=== PATIENT | male | born 1960 | race Caucasian/White ===

== ENCOUNTER 2017-02-07 14:11 | Inpatient (IN) | payer OTHER ==
[~2017-02-07] VITALS: Ht 175.3 cm; Wt 70.3 kg
[~2017-02-07 14:11] MED LIST: ALPR1TAB2 PO; ARIP5TAB10 PO; ASPI81TA31 PO; ATEN25TA PO; BENA20TA2 PO; GABA-534 PO; INSU100V11 SQ; INSU100V7 SQ; METF10002 PO; SIMV20TA6 PO
[2017-02-07] MEDS ORDERED: ACETAMINOPHEN ES 500 MG TABLET PO ONE (14:30)
[2017-02-07] MEDS ORDERED: IV NORMAL SALINE 1000 ML BAG IV ONE (14:30)
[2017-02-07] MEDS ORDERED: ACETAMINOPHEN ES 500 MG TABLET ONE (14:44)
[2017-02-07 14:47] LABS: BASOPHILS % (AUTO) 0.8 % (0.0-2.0); EOSINOPHILS # (AUTO) 0.1 K/uL (0.0-0.7); EOSINOPHILS % (AUTO) 3.3 % (0.0-7.0); HEMATOCRIT 35.6 % (40-50); HEMOGLOBIN 11.9 G/DL (14.0-18.0); LYMPHOCYTES % (AUTO) 24.1 % (20.5-51.5); MEAN CORPUSCULAR HEMOGLOBIN 31.6 UUG (27.0-31.0); MEAN CORPUSCULAR HGB CONC 33 g/dL (32.0-37.0); MEAN CORPUSCULAR VOLUME 94.6 FL (82.0-92.0); MONOCYTES # (AUTO) 0.5 K/UL (0.1-1.30); MONOCYTES % (AUTO) 10.6 % (0.0-11.0); NEUTROPHILS # (AUTO) 2.7 K/UL (1.8-8.9); NEUTROPHILS % (AUTO) 61.2 % (38.5-71.5); PLATELET COUNT (AUTO) 143 K/UL (150-450); RED BLOOD CELL COUNT(AUTO) 3.77 MIL/UL (4.7-6.1); WHITE BLOOD COUNT (AUTO) 4.3 K/UL (4.0-11.2)
[2017-02-07 15:09] LABS: BILIRUBIN,DIRECT 0.2 mg/dL (0.0-0.2); BILIRUBIN,TOTAL 0.7 mg/dL (0.2-1.0); CREATININE 2.4 mg/dL (0.6-1.3); POTASSIUM 3.4 mmol/L (3.5-5.1); TOTAL PROTEIN, SERUM 8.2 g/dL (6.4-8.2)
--- NOTE | 2017-02-07 15:27 | NUR ---
Call placed to [facility], Dr. bOrien will be paged.
--- NOTE | 2017-02-07 15:45 | NUR ---
Fluid bolus not required for elevated lactic acid, per ERMD.
--- NOTE | 2017-02-07 16:39 | NUR ---
SBAR report given to Lorenza DAS via telephone.
[2017-02-07 17:05] VITALS: BP 126/85
--- NOTE | 2017-02-07 18:12 | NUR ---
1814. PATIENT ADMITTED TO 219 VIA ERNEY FROM E.R. AFTER SYNCOPAL EPISODE TODAY. PATIENT AWAKE ALERT AND ORIENTED. NO FURTHER EPISODES SINCE ADMISSION TO FLOOR. PATIENT STATES HE IS A DIABETIC. SPOT ACCUCHECK DONE =117. PATIENT STATES THAT HE HAS FREQUENT EPISODES OF FAINTING FOR THE PAST FEW MONTHS WITH MOMENTARY LOSS OF CONSCIOUSNESS. SMALL LACERATION ON BACK OF HEAD AND SPINE WITH C.T. DONE IN E.R. NO SUTURING WAS NECESSARY TO LACERATION. DR. LOO CALLED FOR PATIENT'S COMPLAINT OF BACK PAIN AND DIET ORDER. MONITOR SHOWS SINUS RHYTHM WITH PVC'S.
[2017-02-07] MEDS ORDERED: DEXTROSE 50% 50 ML DISP.SYRIN IV PRN (18:15)
[2017-02-07] MEDS ORDERED: ZOLPIDEM 5 MG TABLET PO PRN (18:15)
[2017-02-07] MEDS ORDERED: ACETAMINOPHEN 325 MG TABLET PO PRN (18:15)
[2017-02-07] MEDS ORDERED: MORPHINE SULFATE 2 MG/1 ML DISP.SYRIN ONE (19:03)
[2017-02-07] MEDS ORDERED: DIATR MEGLU/DIATRIZOATE SODIUM 30 ML SOLUTION ONE (19:10)
[2017-02-07] MEDS: MORPHINE SULFATE 2 MG/1 ML DISP.SYRIN IV PRN ×2 (19:13→23:14)
--- NOTE | 2017-02-07 19:15 | NUR ---
1911. PATIENT GIVEN 2MGMS MORPHINE SULPHATE IVP FOR COMPLAINTS OF PAIN 12/22, WITH GOOD EFFECT. AMA ALVARENGA R.N. 07-7P. 02/07/2017. 2ND FLOOR M/S/TELE. [facility].
[2017-02-07 20:00] VITALS: BP 103/71
[2017-02-07] MEDS: POTASSIUM CHLORIDE 20 MEQ in IV NS 1000 ML 1,000 ML IV PRN (20:45)
[2017-02-07] MEDS: SIMVASTATIN 20 MG TABLET PO SCH (20:59)
[2017-02-07] MEDS: INSULIN DETEMIR 300 UNIT/3 ML CARTRIDGE SQ SCH (21:06)
[2017-02-07] MEDS: BLOOD SUGAR DIAGNOSTIC 1 EACH STRIP VI SCH (21:07)
--- NOTE | 2017-02-07 21:14 | NUR ---
To CT chest/abdomen via wheelchair.
--- NOTE | 2017-02-07 21:30 | NUR ---
Back from CT. No problem presented. snack provided.
[2017-02-07] MEDS: INSULIN REGULAR, HUMAN 300 UNITS/3 ML VIAL SQ PRN (21:37)
[2017-02-08 00:21] VITALS: BP 136/87
[2017-02-08] MEDS: MORPHINE SULFATE 2 MG/1 ML DISP.SYRIN IV PRN ×3 (03:06→11:14)
[2017-02-08 04:00] VITALS: BP 108/76
[2017-02-08] MEDS: PANTOPRAZOLE SODIUM 40 MG TABLET.DR PO SCH (05:40)
[2017-02-08] MEDS: BLOOD SUGAR DIAGNOSTIC 1 EACH STRIP VI SCH ×4 (05:45→20:09)
--- NOTE | 2017-02-08 06:07 | NUR ---
Slept in between care. Medicated 3x for low back pain. No more bleeding noted on back of head laceration. No s/s of hypo/hyperglycemia. All needs attended and met. No significant event reported all night. Ambulatory to the BR with steady gait. Continue current plan opf care.
[2017-02-08 06:38] LABS: BASOPHILS % (AUTO) 0.6 % (0.0-2.0); EOSINOPHILS # (AUTO) 0.2 K/uL (0.0-0.7); HEMATOCRIT 33.5 % (40-50); HEMOGLOBIN 11.2 G/DL (14.0-18.0); LYMPHOCYTES # (AUTO) 1.1 K/UL (0.8-4.8); LYMPHOCYTES % (AUTO) 25.9 % (20.5-51.5); MEAN CORPUSCULAR HEMOGLOBIN 31.8 UUG (27.0-31.0); MEAN CORPUSCULAR HGB CONC 34 g/dL (32.0-37.0); MEAN CORPUSCULAR VOLUME 94.9 FL (82.0-92.0); MONOCYTES # (AUTO) 0.4 K/UL (0.1-1.30); MONOCYTES % (AUTO) 10.4 % (0.0-11.0); NEUTROPHILS # (AUTO) 2.5 K/UL (1.8-8.9); NEUTROPHILS % (AUTO) 58.1 % (38.5-71.5); PLATELET COUNT (AUTO) 136 K/UL (150-450); RED BLOOD CELL COUNT(AUTO) 3.53 MIL/UL (4.7-6.1); WHITE BLOOD COUNT (AUTO) 4.2 K/UL (4.0-11.2)
[2017-02-08 07:03] LABS: THYROID STIMULATING HORMONE 3.178 mIU/mL (0.358-3.740)
[2017-02-08 07:19] LABS: BILIRUBIN,TOTAL 0.5 mg/dL (0.2-1.0); CREATININE 1.8 mg/dL (0.6-1.3); POTASSIUM 3.3 mmol/L (3.5-5.1); TOTAL PROTEIN, SERUM 7.2 g/dL (6.4-8.2)
--- NOTE | 2017-02-08 07:36 | NUR ---
on bed, resting well, relief from pain verbalized. aware plan of care. no acute bleeding noted on head.
[2017-02-08] MEDS: ASPIRIN 81 MG TAB.CHEW PO SCH (08:37)
--- NOTE | 2017-02-08 08:43 | NUR ---
sister at bedside, supportive of patient care
--- NOTE | 2017-02-08 10:00 | NUR ---
oob with PT, tolerated well. will monitor need for walker for safety
[2017-02-08] MEDS: POTASSIUM CHLORIDE 20 MEQ in IV NS 1000 ML 1,000 ML IV PRN (11:15)
[2017-02-08] MEDS: INSULIN REGULAR, HUMAN 300 UNIT/3 ML VIAL SQ PRN (11:30)
[2017-02-08 12:00] VITALS: BP 103/71
--- NOTE | 2017-02-08 13:17 | NUR ---
family at bedside, supportive of care.
[2017-02-08 15:53] VITALS: BP 138/85
[2017-02-08] MEDS ORDERED: MORPHINE SULFATE 4 MG/1 ML DISP.SYRIN IV PRN (16:00)
[2017-02-08] MEDS: MORPHINE SULFATE 4 MG/1 ML DISP.SYRIN IV PRN ×3 (17:00→22:59)
--- NOTE | 2017-02-08 17:00 | NUR ---
SEEN BY DR BARKER, CHANGE PAIN MED ORDER AND CARRIED OUT.
--- NOTE | 2017-02-08 18:00 | NUR ---
RELIEF FROM PAIN MED VERBALIZED, RESTING WELL
--- NOTE | 2017-02-08 18:05 | NUR ---
LATE ENTRY FOR 1130, NOT SEEN IN THIS COMPUTER, DONE IN THE OTHER COMPUTER FOR BS INSULIN GIVEN AT 1130 BS 165, 3 UNITS REGULAR INSULIN , DOUBLE CHECK JÚNIOR CHANDRA RN
[2017-02-08] MEDS: SIMVASTATIN 20 MG TABLET PO SCH (20:00)
[2017-02-08] MEDS: INSULIN DETEMIR 300 UNIT/3 ML CARTRIDGE SQ SCH (20:05)
[2017-02-08] MEDS: INSULIN REGULAR, HUMAN 300 UNITS/3 ML VIAL SQ PRN (20:06)
[2017-02-08 20:29] VITALS: BP 143/94
--- NOTE | 2017-02-08 21:35 | NUR ---
PT C/O OF BLOOD SUGAR "GOING DOWN FAST". PT STATED "I CAN FEEL IT, I KNOW IT". ACCUCHECK DONE, BLOOD SUGAR READING 159. PT IS ALERT, IN NO ACUTE DISTRESS, HANDS TREMBLING. PATIENT REQUESTED FOR ORANGE JUICE AND SNACKS. PROVIDED PATIENT TEACHING REGARDING SCHEDULED INSULIN REGIMEN, PT VERBALIZED UNDERSTANDING. PATIENT KEPT COMFORTABLE. INSTRUCTED PATIENT TO USE CALL LIGHT WHEN ASSISTANCE IS NEEDED. WILL CONTINUE TO MONITOR.
--- NOTE | 2017-02-08 23:45 | NUR ---
PT C/O OF THROWING UP SMALL AMOUNT OF CLEAR LIQUID. OFFERED PT MEDICATION TO RELIEVE NAUSEA/EMESIS BUT PATIENT REFUSED. PT STATED "I JUST NEED TO SETTLE". OFFERED PT ICE CHIPS AND EMESIS BAG. WILL CONTINUE TO MONITOR.
[2017-02-09] MEDS: POTASSIUM CHLORIDE 20 MEQ in IV NS 1000 ML 1,000 ML IV PRN (02:08)
[2017-02-09] MEDS: ONDANSETRON 4 MG/2 ML VIAL IV PRN ×2 (05:23→11:31)
--- NOTE | 2017-02-09 05:25 | NUR ---
PATIENT HAD SMALL AMOUNT OF EMESIS. ZOFRAN ADMINISTERED. ACCUCHECK DONE, BLOOD SUGAR READING 83. PROVIDED SNACKS. WILL CONTINUE TO MONITOR.
--- NOTE | 2017-02-09 06:30 | NUR ---
PT SLEPT INTERMITTENTLY, IN NO ACUTE DISTRESS. IVF RUNNING, NO INFILTRATION NOTED. ACCUCHECKS DONE ORDERED. ASSISTED WITH TOILETING NEEDS, CALL LIGHT WITHIN REACH. WILL CONTINUE TO MONITOR.
[2017-02-09 06:36] VITALS: BP 132/75
[2017-02-09 06:59] LABS: CREATININE 1.4 mg/dL (0.6-1.3); MAGNESIUM 1.3 mg/dL (1.8-2.4); PHOSPHOROUS 4.2 mg/dL (2.5-4.9); POTASSIUM 3.8 mmol/L (3.5-5.1)
[2017-02-09 07:07] LABS: BASOPHILS % (AUTO) 0.4 % (0.0-2.0); EOSINOPHILS # (AUTO) 0.1 K/uL (0.0-0.7); EOSINOPHILS % (AUTO) 2.5 % (0.0-7.0); HEMATOCRIT 36.2 % (40-50); HEMOGLOBIN 12.1 G/DL (14.0-18.0); LYMPHOCYTES # (AUTO) 1.3 K/UL (0.8-4.8); LYMPHOCYTES % (AUTO) 26.4 % (20.5-51.5); MEAN CORPUSCULAR HEMOGLOBIN 31.9 UUG (27.0-31.0); MEAN CORPUSCULAR HGB CONC 33 g/dL (32.0-37.0); MEAN CORPUSCULAR VOLUME 95.4 FL (82.0-92.0); MONOCYTES # (AUTO) 0.5 K/UL (0.1-1.30); NEUTROPHILS # (AUTO) 2.9 K/UL (1.8-8.9); NEUTROPHILS % (AUTO) 60.7 % (38.5-71.5); PLATELET COUNT (AUTO) 158 K/UL (150-450); RED BLOOD CELL COUNT(AUTO) 3.79 MIL/UL (4.7-6.1); WHITE BLOOD COUNT (AUTO) 4.8 K/UL (4.0-11.2)
[2017-02-09] MEDS: BLOOD SUGAR DIAGNOSTIC 1 EACH STRIP VI SCH ×4 (07:17→21:08)
[2017-02-09] MEDS: PANTOPRAZOLE SODIUM 40 MG TABLET.DR PO SCH (07:17)
[2017-02-09] MEDS: ASPIRIN 81 MG TAB.CHEW PO SCH (08:28)
[2017-02-09] MEDS: MORPHINE SULFATE 4 MG/1 ML DISP.SYRIN IV PRN ×5 (08:29→23:58)
[2017-02-09] MEDS ORDERED: MAGNESIUM OXIDE 400 MG TABLET PO ONE (09:15)
[2017-02-09] MEDS ORDERED: MAGNESIUM HYDROXIDE 30 ML LIQUID UDC PO PRN (11:30)
[2017-02-09] MEDS: INSULIN REGULAR, HUMAN 300 UNIT/3 ML VIAL SQ PRN (11:35)
[2017-02-09 11:58] VITALS: BP 157/99
--- NOTE | 2017-02-09 15:25 | NUR ---
sister at bedside , supportive of patient care
[2017-02-09 15:45] VITALS: BP 152/98
--- NOTE | 2017-02-09 18:21 | NUR ---
resting well. relief from pain med verbalized. no bm result from mom for now.
--- NOTE | 2017-02-09 19:30 | NUR ---
RECEIVED SHIFT REPORT FROM PREVIOUS SHIFT NURSE. PATIENT IS IN STABLE CONDITION, NO S/S OF DISTRESS. PATIENT COMPLAINS OF PAIN 8/10 IN LOWER BACK AND WILL FOLLOW UP WITH PAIN MEDICATION. PATIENT ALSO COMPLAINS OF CONSTIPATION, WILL CONTACT MD ABOUT PATIENT'S CONCERN. PATIENT A/O X3. BED IN LOCKED/LOW POSITION WITH SIDE RAILS UP X2. PATIENT IS AMBULATORY WITH NO SIGNS OF WEAK GAIT AT THE MOMENT. CALL LIGHT WITHIN REACH OF PATIENT. COMFORT AND SAFETY WILL BE IMPLEMENTED THROUGHOUT SHIFT.
[2017-02-09 20:11] VITALS: BP 152/95
[2017-02-09] MEDS: SIMVASTATIN 20 MG TABLET PO SCH (20:16)
[2017-02-09] MEDS: INSULIN DETEMIR 300 UNIT/3 ML CARTRIDGE SQ SCH (21:14)
[2017-02-09] MEDS: INSULIN REGULAR, HUMAN 300 UNITS/3 ML VIAL SQ PRN ×2 (21:14→21:22)
[2017-02-09] MEDS ORDERED: BISACODYL 10 MG SUPP.RECT RC ONE (21:30)
--- NOTE | 2017-02-09 21:30 | NUR ---
PATIENT COMPLAINING ABOUT CONSTIPATION SINCE BEGINNING OF SHIFT. MILK OF MAGNESIUM WAS ADMINISTERED DURING DAY SHIFT BUT PATIENT VERBALIZES THAT HE STILL FEELS CONSTIPATED AND HASNT HAD A BOWEL MOVEMENT SINCE EARLY FRIDAY MORNING. DR. BARKER NOTIFIED AND ORDERED DULCOLAX SUPPOSITORY 10 MG ONCE.
--- NOTE | 2017-02-09 21:30 | NUR ---
INSULIN HUMULIN 6 UNITS HS REFUSED BY PATIENT. PATIENT VERBALIZED THAT HE RECEIVED THE LEVEMIR AND HUMULIN THE PREVIOUS NIGHT AND SAID HIS BLOOD SUGAR DROPPED TOO LOW. PATIENT SAYS HE IS AFRAID OF IT DROPPING AGAIN SO HE REFUSED THE HUMULIN. THE LEVEMIR FLEXTOUCH 15 UNITS HS WAS ADMINISTERED TO PATIENT.
[2017-02-10] MEDS: MORPHINE SULFATE 4 MG/1 ML DISP.SYRIN IV PRN ×2 (03:01→08:43)
[2017-02-10] MEDS: PANTOPRAZOLE SODIUM 40 MG TABLET.DR PO SCH (06:26)
[2017-02-10 06:35] LABS: CREATININE 1.4 mg/dL (0.6-1.3); MAGNESIUM 1.4 mg/dL (1.8-2.4); PHOSPHOROUS 4.2 mg/dL (2.5-4.9); POTASSIUM 4.4 mmol/L (3.5-5.1)
[2017-02-10 06:40] VITALS: BP 148/87
[2017-02-10] MEDS: BLOOD SUGAR DIAGNOSTIC 1 EACH STRIP VI SCH ×2 (07:01→11:48)
[2017-02-10] MEDS ORDERED: MAGNESIUM OXIDE 400 MG TABLET PO ONE (09:30)
[2017-02-10] MEDS: ASPIRIN 81 MG TAB.CHEW PO SCH (10:16)
[2017-02-10] MEDS ORDERED: MORPHINE SULFATE 4 MG/1 ML DISP.SYRIN IV ONE (11:15)
[2017-02-10] MEDS ORDERED: HYDROCODONE/APAP 10-325 MG TABLET PO PRN (11:15)
[2017-02-10 11:16] VITALS: BP 166/96
[2017-02-10] MEDS ORDERED: BENAZEPRIL HCL 20 MG TABLET PO ONE (12:55)
[2017-02-10] MEDS ORDERED: HYDR-548 PO (12:58)
[2017-02-10] MEDS ORDERED: OMEP20TA20 PO (12:58)
--- NOTE | 2017-02-10 13:45 | NUR ---
I/V D/C'D. HOME INSTRUCTIONS REVIEWED WITH PT. DR. BARKER IN EARLIER TO REVIEW ALL HOME INSTRUCTIONS INCLUDING ALL FOLLOW-UP INSTRUCTIONS. PT. STATES THAT HE DOES NOT WANT STAFF TO MAKE HIS FOLLOW-UP APPOINTMENTS---STATES I DON'T KNOW WHAT MY SCHEDULE IS YET. PT. STATES NO DIZZINESS AT THIS TIME.. DISCHARGED TO BY RN.
[2017-02-10] MEDS ORDERED: MAGNESIUM OXIDE 400 MG TABLET PO SCH (21:00)
== END 2017-02-10 13:45 | disposition home or self-care (01) | DRG 73 ==
LOC: ER 14:11 → TELE 16:32 → MED 02-08 21:42
PROVIDERS: ADMIT Internal Medicine; ATTEND Internal Medicine
DX: G90.8 Other disorders of autonomic nervous system (principal); N17.0 Acute kidney failure with tubular necrosis; E87.2 Acidosis; M48.56XA Collapsed vertebra, not elsewhere classified, lumbar region, initial encounter for fracture; E86.0 Dehydration; D64.9 Anemia, unspecified; E11.65 Type 2 diabetes mellitus with hyperglycemia; E78.5 Hyperlipidemia, unspecified; E87.6 Hypokalemia; G89.29 Other chronic pain; E11.42 Type 2 diabetes mellitus with diabetic polyneuropathy; I10 Essential (primary) hypertension; N20.0 Calculus of kidney; Z87.891 Personal history of nicotine dependence; A08.4 Viral intestinal infection, unspecified; Z91.81 History of falling; F10.21 Alcohol dependence, in remission; K59.00 Constipation, unspecified; Z79.82 Long term (current) use of aspirin; Z79.84 Long term (current) use of oral hypoglycemic drugs; M48.07 Spinal stenosis, lumbosacral region; R93.5 Abnormal findings on diagnostic imaging of other abdominal regions, including retroperitoneum
CPT/HCPCS: 36415; 70030-TC; 70450; 71010; 72072; 72100; 72131; 83550; 83605; 83690; 83735; 84100; 84153; 84443; 85025; 85730; 86850; 86900; 86901; 87040; A4217; A4663; J1815; J2270; J2405; J3480; J7030; Q9963

== ENCOUNTER 2017-09-14 06:24 | Emergency (ER) | payer BC, OTHER ==
[~2017-09-14] VITALS: Ht 175.3 cm; Wt 68.0 kg
[~2017-09-14 06:24] MED LIST changes: -ARIP5TAB10 PO; +HYDR-548 PO; +OMEP20TA20 PO
--- NOTE | 2017-09-14 07:10 | NUR ---
Dr Patton at the bedside for MSE.
--- NOTE | 2017-09-14 08:07 | NUR ---
Paged [facility] group per Md request.
--- NOTE | 2017-09-14 08:28 | NUR ---
FARHAT Olvera spoke to Deedee Pandya) from [employer].
[2017-09-14] MEDS ORDERED: NEOMY/BACITRA/POLYMYXIN B OINT UD PACKET TP ONE ×2 (08:33→08:45)
--- NOTE | 2017-09-14 08:46 | NUR ---
Patient discharged to home in stable conditon. Written and verbal after care instructions given. Patient verbalizes understanding of instructions.
[2017-09-14 08:53] VITALS: BP 132/89
== END 2017-09-14 08:57 | disposition home or self-care (01) ==
LOC: ER 06:27
DX: S92.502A Displaced unspecified fracture of left lesser toe(s), initial encounter for closed fracture (principal); E11.9 Type 2 diabetes mellitus without complications; I10 Essential (primary) hypertension; E78.5 Hyperlipidemia, unspecified; Z88.5 Allergy status to narcotic agent; Z79.82 Long term (current) use of aspirin; Z79.4 Long term (current) use of insulin; Z79.84 Long term (current) use of oral hypoglycemic drugs; Z79.891 Long term (current) use of opiate analgesic; Z79.899 Other long term (current) drug therapy
CPT/HCPCS: 73630; A4663

== ENCOUNTER 2017-09-24 12:03 | Inpatient (IN) | payer BC, OTHER ==
[~2017-09-24] VITALS: Ht 170.2 cm; Wt 63.5 kg
[~2017-09-24 12:03] MED LIST changes: -ATEN25TA PO; -BENA20TA2 PO; -METF10002 PO; +METF10004 PO; -OMEP20TA20 PO
[2017-09-24] MEDS ORDERED: PIPERACILLIN/TAZOBACTAM/D5W 3.375 G in PREMIXED 1 EACH IV SCH (12:32)
[2017-09-24] MEDS ORDERED: SWABABLE VALVE TRANSFER SET EA MC ONE (12:39)
[2017-09-24] MEDS ORDERED: IV NORMAL SALINE 100 ML ONE (12:39)
[2017-09-24] MEDS ORDERED: IOHEXOL 300MG/ML 100 ML INFUS..BTL ONE (12:39)
[2017-09-24] MEDS ORDERED: HYDROCODONE/APAP 10-325 MG TABLET PO ONE (12:45)
[2017-09-24 12:47] LABS: BASOPHILS % (AUTO) 0.7 % (0.0-2.0); EOSINOPHILS # (AUTO) 0.1 K/uL (0.0-0.7); EOSINOPHILS % (AUTO) 1.7 % (0.0-7.0); HEMATOCRIT 32.5 % (36.7-47.1); HEMOGLOBIN 11.5 g/dL (12.5-16.3); LYMPHOCYTES # (AUTO) 0.7 K/uL (20.0-40.0); LYMPHOCYTES % (AUTO) 22.5 % (20.5-51.5); MEAN CORPUSCULAR HEMOGLOBIN 32.6 uug (23.8-33.4); MEAN CORPUSCULAR HGB CONC 35 g/dL (32.5-36.3); MEAN CORPUSCULAR VOLUME 92.5 fL (73.0-96.2); MONOCYTES # (AUTO) 0.4 K/uL (2.0-10.0); MONOCYTES % (AUTO) 11.9 % (0.0-11.0); NEUTROPHILS # (AUTO) 2.1 K/uL (1.8-8.9); NEUTROPHILS % (AUTO) 63.2 % (38.5-71.5); RED BLOOD CELL COUNT(AUTO) 3.52 MIL/uL (4.06-5.63)
[2017-09-24 12:55] LABS: PLATELET COUNT (AUTO) 130 K/uL (152-348); WHITE BLOOD COUNT (AUTO) 3.3 K/uL (3.6-10.2)
[2017-09-24 13:03] LABS: CREATININE 1.3 mg/dL (0.6-1.3); POTASSIUM 4.2 mmol/L (3.5-5.1); TOTAL PROTEIN, SERUM 6.9 g/dL (6.4-8.2)
[2017-09-24] MEDS ORDERED: INSULIN REGULAR, HUMAN 1,000 UNITS/10 ML VIAL IV ONE (13:07)
[2017-09-24] MEDS ORDERED: IV NS 1000 ML 1,000 ML IV ONE (13:15)
[2017-09-24] MEDS ORDERED: INSULIN REGULAR, HUMAN 300 UNIT/3 ML VIAL ONE (13:18)
--- NOTE | 2017-09-24 13:36 | NUR ---
[facility] 1800 PROVIDED FOR PT.
[2017-09-24 14:23] LABS: *BILIRUBIN,URIN NEGATIVE (NEGATIVE); *BLOOD, URINE 2+ (NEGATIVE); *CLARITY,URINE SLIGHTLY CLOUDY (CLEAR); *COLOR,URINE YELLOW (YELLOW); *KETONES,URINE NEGATIVE (NEGATIVE); *PROTEIN,URINE 1+ (NEGATIVE); *UROBILINOGEN,URINE 0.2 E.U./dl (NORMAL); LEUKOCYTE ESTERASE ,URINE NEGATIVE (NEGATIVE); NITRITE, URINE NEGATIVE (NEGATIVE)
[2017-09-24 14:26] LABS: UGLUCOSE 3+ (NEGATIVE)
[2017-09-24 15:11] LABS: BACTERIA,URINE NONE SEEN /HPF (NONE SEEN); SQUAMOUS EPITHELIAL CELL,UR NONE SEEN /HPF (NONE SEEN); WBC,URINE 0-3 /HPF (0-3)
[2017-09-24] MEDS ORDERED: MORPHINE SULFATE 2 MG/1 ML DISP.SYRIN IV ONE (16:45)
--- NOTE | 2017-09-24 16:45 | NUR ---
HAD TO CALL [phone] TO TALK TO RADIOLOGIST REGARDING THE DELAY IN CT RESULT. CALLED MULTIPLE TIMES IMAGING TO FOLLOW UP. UNABLE TO GET THE CT RESULT. PT TRANSFER TO FLOOR PENDING ON CT RESULTS PER BR. BLAIR ORDER.
[2017-09-24] MEDS ORDERED: MORPHINE SULFATE 4 MG/1 ML DISP.SYRIN ONE (16:53)
--- NOTE | 2017-09-24 17:28 | NUR ---
YO=[id number].
--- NOTE | 2017-09-24 17:34 | NUR ---
PT TRANSFERED TO FLOOR IN STABLE CONDITION.
[2017-09-24 17:40] VITALS: BP 112/94
--- NOTE | 2017-09-24 17:40 | NUR ---
Pt arrived to Med Surg dept [facility] [address] escorted by ER staff. Pt stable at this moment. A/Ox4, able to provide medical hx. C/O pain in L foot 10/21.
[2017-09-24] MEDS ORDERED: VANCOMYCIN IV 1 G in PREMIXED 0 EACH IV SCH (19:30)
[2017-09-24] MEDS ORDERED: ONDANSETRON 4 MG/2 ML VIAL IV PRN (19:30)
[2017-09-24] MEDS ORDERED: MAGNESIUM HYDROXIDE 30 ML LIQUID UDC PO PRN (19:30)
[2017-09-24] MEDS ORDERED: ACETAMINOPHEN 325 MG TABLET PO PRN (19:30)
[2017-09-24] MEDS ORDERED: ZOLPIDEM 5 MG TABLET PO PRN (19:30)
[2017-09-24] MEDS ORDERED: DEXTROSE 50% 50 ML DISP.SYRIN IV PRN (19:30)
[2017-09-24] MEDS ORDERED: Z GUARD REMEDY PASTE 57 GM TUBE TOP PRN (19:30)
[2017-09-24 20:04] VITALS: BP 112/94
[2017-09-24] MEDS: BLOOD SUGAR DIAGNOSTIC 1 EACH STRIP VI SCH (20:31)
[2017-09-24] MEDS: INSULIN REGULAR, HUMAN 300 UNIT/3 ML VIAL SQ PRN (20:33)
[2017-09-24] MEDS: SIMVASTATIN 20 MG TABLET PO SCH (20:36)
[2017-09-24] MEDS: ENOXAPARIN SODIUM 40 MG/0.4 ML DISP.SYRIN SQ SCH (20:36)
[2017-09-24] MEDS: HYDROCODONE/APAP 5-325MG TABLET PO PRN (20:37)
[2017-09-24] MEDS ORDERED: INSULIN GLARGINE,HUM 300 UNITS/3 ML CARTRIDGE SQ SCH (21:00)
[2017-09-24] MEDS: PIPERACILLIN/TAZOBACTAM/D5W 3.375 G in PREMIXED 1 EACH IV SCH (21:26)
[2017-09-24] MEDS: MORPHINE SULFATE 4 MG/1 ML DISP.SYRIN IV PRN ×2 (21:46→21:53)
--- NOTE | 2017-09-24 21:52 | NUR ---
CLINICAL PHARMACY NOTE:VANCOMYCIN DOSING Vancomycin dosing on 56 y/o male 5'7" 140lbs for left foot cellulitis Temp 98.7F BUN 14 SCr 1.3 WBC 3.3 also on Zosyn Start vancomycin 1gm ivpb q20h estimate trough 13. Will order trough level prior to 4th dose. Will continue to monitor
[2017-09-24] MEDS: VANCOMYCIN IV 1 G in PREMIXED 0 EACH IV SCH (22:46)
[2017-09-25] MEDS: BLOOD SUGAR DIAGNOSTIC 1 EACH STRIP VI SCH ×7 (01:40→20:55)
--- NOTE | 2017-09-25 01:42 | NUR ---
PATIENT AWAKE IN BED. C/O "FEELING SHAKY" AND REQUESTING FOR BLOOD SUGAR TO BE RECHECKED HE FEELS HIS SUGAR MIGHT HAVE DROPPED. RECHECKED AND RECEIVED 69. PATIENT GIVEN JUICE AND SNACK. WILL RECHECK AND CONTINUE TO MONITOR.
--- NOTE | 2017-09-25 02:10 | NUR ---
RECHECKED PATIENTS BLOOD SUGAR AND RECEIVED 92. PATENT IS A/O X4. ASYMPTOMATIC. VERBALIZES HE "FEELS BETTER." ALL NEEDS ATTENDED. WILL CONTINUE TO MONITOR.
[2017-09-25] MEDS: MORPHINE SULFATE 4 MG/1 ML DISP.SYRIN IV PRN ×4 (02:15→17:52)
[2017-09-25 04:00] VITALS: BP 154/87
[2017-09-25] MEDS: PIPERACILLIN/TAZOBACTAM/D5W 3.375 G in PREMIXED 1 EACH IV SCH ×3 (05:50→13:41)
--- NOTE | 2017-09-25 06:00 | NUR ---
PATIENT AWAKE, C/O PAIN. GIVEN MORPHINE 2MG IV PRN PER HAND PACKER. WILL CONTINUE TO MONITOR.
[2017-09-25 06:10] LABS: BASOPHILS % (AUTO) 0.8 % (0.0-2.0); EOSINOPHILS # (AUTO) 0.1 K/uL (0.0-0.7); EOSINOPHILS % (AUTO) 2.3 % (0.0-7.0); HEMOGLOBIN 10.6 g/dL (12.5-16.3); LYMPHOCYTES % (AUTO) 23.2 % (20.5-51.5); MEAN CORPUSCULAR HEMOGLOBIN 32.5 uug (23.8-33.4); MEAN CORPUSCULAR HGB CONC 35 g/dL (32.5-36.3); MEAN CORPUSCULAR VOLUME 91.7 fL (73.0-96.2); MONOCYTES # (AUTO) 0.5 K/uL (2.0-10.0); MONOCYTES % (AUTO) 11.1 % (0.0-11.0); NEUTROPHILS # (AUTO) 2.7 K/uL (1.8-8.9); NEUTROPHILS % (AUTO) 62.6 % (38.5-71.5); PLATELET COUNT (AUTO) 123 K/uL (152-348); RED BLOOD CELL COUNT(AUTO) 3.27 MIL/uL (4.06-5.63); WHITE BLOOD COUNT (AUTO) 4.3 K/uL (3.6-10.2)
[2017-09-25 06:27] LABS: CREATININE 1.2 mg/dL (0.6-1.3); MAGNESIUM 1.3 mg/dL (1.8-2.4); PHOSPHOROUS 4.8 mg/dL (2.5-4.9); POTASSIUM 3.9 mmol/L (3.5-5.1)
--- NOTE | 2017-09-25 06:35 | NUR ---
PATIENT AWAKE. RECHECKED AC BLOOD SUGAR, RECEIVED 65. PATIENT IS AWAKE AND ALERT. ASYMPTOMATIC. PATIENT GIVEN SNACKS AND JUICE. WILL RECHECK.
--- NOTE | 2017-09-25 07:20 | NUR ---
RECEIVED REPORT FROM RECOVERY RN NURSE, PATIENT IN BED AWAKE, NO DISTRESS NOTED AT THIS TIME, BED IN LOW POSITION, SIDE RAILS UP X2, LEFT FOOT ELEVATED ON PILLOWS.
[2017-09-25] MEDS: ALPRAZOLAM 0.5 MG TABLET PO SCH (08:34)
[2017-09-25] MEDS: ASPIRIN 81 MG TAB.CHEW PO SCH (08:34)
[2017-09-25] MEDS: GABAPENTIN 300 MG CAPSULE PO SCH ×3 (08:35→16:31)
[2017-09-25] MEDS: HYDROCODONE/APAP 5-325MG TABLET PO PRN ×2 (10:24→17:52)
--- NOTE | 2017-09-25 13:52 | NUR ---
PATIENT WAS IN A DEEP SLEEP, AND FOOD WAS NOT EATEN, BLOOD GLUCOSE CHECKED AND REVEALED TO BE 60. JUICE GIVEN AND PATIENT STARTED EATING LUNCH.
--- NOTE | 2017-09-25 14:05 | NUR ---
CLINICAL PHARMACY NOTE:VANCOMYCIN DOSING Vancomycin dosing on 56 y/o male 5'7" 140lbs for left foot cellulitis Temp 98.1F BUN 20 SCr 1.2 WBC 3.3 also on Zosyn Continue vancomycin 1gm ivpb q20h(third dose tomorrow at 0500) estimate trough 13. Will order trough level prior to 4th dose. Will continue to monitor
[2017-09-25] MEDS: MAGNESIUM SULFATE/D5W 100 ML IV SCH ×4 (15:51→19:09)
[2017-09-25 16:07] VITALS: BP 96/57
[2017-09-25 17:52] VITALS: BP 137/91
[2017-09-25] MEDS ORDERED: METFORMIN HCL 500 MG TABLET PO SCH (18:00)
--- NOTE | 2017-09-25 18:17 | NUR ---
PATIENT HAS BEEN COOPERATIVE WITH CARE. PATIENT HAD ONE EPISODE OF EMESIS INDUCED BY SMELL OF DINNER. CURRENTLY PATIENT IS IN NO DISTRESS, BED IN LOW POSITION, SIDE RAILS UP X2, BED ALARM ON PATIENT REMOVES IV ON HIS OWN AND GETS OUT OF BED WITHOUT WARNING. PATIENT WAS MILDLY CONFUSED UPON AWAKENING ONCE, BUT QUICKLY REORIENTED.
[2017-09-25 19:00] VITALS: BP 116/76
--- NOTE | 2017-09-25 19:50 | NUR ---
RECEIVED PATIENT ASLEEP IN BED. VS WNL. NO RESP. DISTRESS NOTED. CALL LIGHT IN REACH. ALL NEEDS ATTENDED. WILL CONTINUE TO MONITOR.
[2017-09-25] MEDS: VANCOMYCIN IV 1 G in PREMIXED 0 EACH IV SCH (20:27)
[2017-09-25] MEDS: ENOXAPARIN SODIUM 40 MG/0.4 ML DISP.SYRIN SQ SCH (20:54)
[2017-09-25] MEDS: SIMVASTATIN 20 MG TABLET PO SCH (20:55)
[2017-09-25] MEDS ORDERED: INSULIN GLARGINE,HUM 300 UNITS/3 ML CARTRIDGE SQ SCH (21:00)
[2017-09-25] MEDS ORDERED: CEFTRIAXONE 1 G in IV DEXTROSE 5% 50 ML IV SCH (21:00)
[2017-09-25] MEDS ORDERED: CEFTRIAXONE 1 G VIAL ONE (21:49)
[2017-09-26] MEDS: MORPHINE SULFATE 4 MG/1 ML DISP.SYRIN IV PRN ×2 (00:06→04:14)
[2017-09-26 04:00] VITALS: BP 141/90
--- NOTE | 2017-09-26 04:15 | NUR ---
PATIENT AWAKE IN BED. C/O PAIN IN LEFT FOOT. LEFT FOOT CONTINUED TO BE ELEVATED ORDERED. PATIENT GIVEN MORPHINE 2MG IV PRN PER SHIP SCALER. CALL LIGHT IN REACH. ALL NEEDS ATTENDED. WILL CONTINUE TO MONITOR.
[2017-09-26] MEDS: BLOOD SUGAR DIAGNOSTIC 1 EACH STRIP VI SCH ×3 (06:46→16:40)
--- NOTE | 2017-09-26 06:49 | NUR ---
PATIENT AWAKE IN BED, WATCHING TV. VSS. NO C/O PAIN AT THIS TIME. LEFT LOWER FOOT/LEG ELEVATED ON 3 PILLOWS ORDERED. CALL LIGHT IN REACH. ALL NEEDS ATTENDED. WILL CONTINUE TO MONITOR.
[2017-09-26 06:55] LABS: CREATININE 1.3 mg/dL (0.6-1.3); PHOSPHOROUS 5.6 mg/dL (2.5-4.9); POTASSIUM 4.4 mmol/L (3.5-5.1)
--- NOTE | 2017-09-26 07:05 | NUR ---
received report from cage shift manager nurse, patient in bed asleep, no distress noted, bed in low position, side rails up x2, bed alarm on.
[2017-09-26 07:16] LABS: BASOPHILS % (AUTO) 0.4 % (0.0-2.0); EOSINOPHILS # (AUTO) 0.1 K/uL (0.0-0.7); EOSINOPHILS % (AUTO) 2.1 % (0.0-7.0); HEMATOCRIT 31.5 % (36.7-47.1); HEMOGLOBIN 11.3 g/dL (12.5-16.3); LYMPHOCYTES # (AUTO) 0.4 K/uL (20.0-40.0); LYMPHOCYTES % (AUTO) 7.2 % (20.5-51.5); MEAN CORPUSCULAR HEMOGLOBIN 33.2 uug (23.8-33.4); MEAN CORPUSCULAR HGB CONC 36 g/dL (32.5-36.3); MEAN CORPUSCULAR VOLUME 93.1 fL (73.0-96.2); MONOCYTES # (AUTO) 0.3 K/uL (2.0-10.0); MONOCYTES % (AUTO) 5.7 % (0.0-11.0); NEUTROPHILS # (AUTO) 4.8 K/uL (1.8-8.9); NEUTROPHILS % (AUTO) 84.6 % (38.5-71.5); PLATELET COUNT (AUTO) 121 K/uL (152-348); RED BLOOD CELL COUNT(AUTO) 3.39 MIL/uL (4.06-5.63)
[2017-09-26 07:29] LABS: WHITE BLOOD COUNT (AUTO) 5.7 K/uL (3.6-10.2)
[2017-09-26] MEDS: ASPIRIN 81 MG TAB.CHEW PO SCH (08:47)
[2017-09-26] MEDS: GABAPENTIN 300 MG CAPSULE PO SCH ×3 (08:47→16:37)
[2017-09-26] MEDS: ALPRAZOLAM 0.5 MG TABLET PO SCH (08:47)
[2017-09-26] MEDS: HYDROCODONE/APAP 5-325MG TABLET PO PRN ×2 (08:47→15:51)
[2017-09-26] MEDS: INSULIN REGULAR, HUMAN 300 UNIT/3 ML VIAL SQ PRN ×3 (08:50→16:44)
[2017-09-26] MEDS ORDERED: SULF1TAB48 PO (10:22)
[2017-09-26] MEDS ORDERED: METF-494 PO (10:22)
[2017-09-26 11:47] VITALS: BP 107/74
[2017-09-26] MEDS ORDERED: CEFT1FRO2 IV (12:07)
[2017-09-26] MEDS ORDERED: Morphine Sulfate Inj IV (12:07)
[2017-09-26] MEDS ORDERED: HYDR-3326 PO (12:07)
[2017-09-26 12:11] LABS: THYROID STIMULATING HORMONE 2.666 mIU/mL (0.358-3.740)
[2017-09-26 12:19] LABS: *RHEUMATOID FACTOR SCREEN NEGATIVE (NEGATIVE)
--- NOTE | 2017-09-26 14:13 | NUR ---
CLINICAL PHARMACY NOTE:VANCOMYCIN DOSING Vancomycin dosing on 56 y/o male 5'7" 140lbs for left foot cellulitis(with gangrene) Temp 98.1F BUN 21 SCr 1.3 WBC 5.7 also on Zosyn Continue vancomycin 1gm ivpb q20h(third dose today at 1500) estimate trough 13. Will order trough level prior to 4th dose(ordered for tomorrow at 1030). Will continue to monitor
[2017-09-26] MEDS: VANCOMYCIN IV 1 G in PREMIXED 0 EACH IV SCH (15:15)
[2017-09-26 15:57] VITALS: BP 112/70
[2017-09-26] MEDS ORDERED: METFORMIN HCL 500 MG TABLET PO SCH (18:00)
--- NOTE | 2017-09-26 18:57 | NUR ---
Patient was given discharge instructions, iv removed, and midline inserted. Foot boot applied on patients foot, patient refused pictures of foot again. Report called to [facility]. No distress noted at the time of discharge, all questions answered. All of patients belongings accounted for.
[2017-09-26] MEDS ORDERED: CADEXOMER IODINE 40 GM TUBE TOP SCH (19:00)
[2017-09-26] MEDS ORDERED: LACTOBACILLUS RHAMNOSUS GG 1 EACH CAPSULE PO SCH (21:00)
[2017-09-27 05:07] LABS: *IMMUNOGLOBULIN G, SERUM 765 mg/dL (700-1600); IMMUNOGLOBULIN A, SERUM 332 mg/dL (90-386); IMMUNOGLOBULIN M, SERUM 83 mg/dL (20-172)
[2017-09-27 11:07] LABS: *ANTI-SCLERODERMA-70 AB <0.2 AI (0.0-0.9); *SJOGREN'S ANTI-SS-A <0.2 AI (0.0-0.9); *SJOGREN'S ANTI-SS-B <0.2 AI (0.0-0.9); *SMITH ANTIBODIES <0.2 AI (0.0-0.9); ANTI-DNA(DS) AB, QN <1 IU/mL (0-9)
[2017-09-29 08:09] LABS: A/G RATIO 1.3 (0.7-1.7); ALBUMIN 3.3 g/dL (2.9-4.4); ALPHA-1-GLOBULIN 0.3 g/dL (0.0-0.4); ALPHA-2-GLOBULIN 0.6 g/dL (0.4-1.0); GAMMA GLOBULIN 0.7 g/dL (0.4-1.8); GLOBULIN, TOTAL 2.5 g/dL (2.2-3.9); M-SPIKE Not Observed g/dL (Not Observed)
== END 2017-09-26 18:45 | DRG 603 ==
LOC: ER 12:03 → MED 17:01
PROVIDERS: ADMIT Nurse Practitioner Acute Care; ATTEND Nurse Practitioner Acute Care
PROC: 05H533Z Insertion of Infusion Device into Right Subclavian Vein, Percutaneous Approach (ICD-10-PCS; principal; 2017-09-26)
PROC: B546ZZA Ultrasonography of Right Subclavian Vein, Guidance (ICD-10-PCS; 2017-09-26)
DX: L03.116 Cellulitis of left lower limb (principal); K86.1 Other chronic pancreatitis; D61.818 Other pancytopenia; E11.621 Type 2 diabetes mellitus with foot ulcer; L97.529 Non-pressure chronic ulcer of other part of left foot with unspecified severity; S92.512G Displaced fracture of proximal phalanx of left lesser toe(s), subsequent encounter for fracture with delayed healing; W22.03XD Walked into furniture, subsequent encounter; E11.42 Type 2 diabetes mellitus with diabetic polyneuropathy; E11.65 Type 2 diabetes mellitus with hyperglycemia; Z79.4 Long term (current) use of insulin; Z79.82 Long term (current) use of aspirin; I10 Essential (primary) hypertension
CPT/HCPCS: 36415; 82746; 82784; 83550; 83605; 83735; 84100; 84155; 84165; 84443; 85025; 85651; 86038; 86140; 86334; 86430; 87040; A4663; J0696; J1650; J1815; J2270; J2543; J3370; J3475; J3490; J7050; J7060; Q9967

== ENCOUNTER 2017-10-15 11:34 | Emergency (ER) | payer BC, OTHER ==
[~2017-10-15] VITALS: Ht 170.2 cm; Wt 63.5 kg
[~2017-10-15 11:34] MED LIST changes: +CEFT1FRO2 IV; +HYDR-3326 PO; -INSU100V7 SQ; +METF-494 PO; -METF10004 PO; +Morphine Sulfate Inj IV
[2017-10-15] MEDS ORDERED: INSU100V7 SQ (11:50)
[2017-10-15] MEDS ORDERED: ALPRAZOLAM 1 MG (11:50)
[2017-10-15] MEDS ORDERED: [UNRECOGNIZED DRUG - REMARK] (11:50)
--- NOTE | 2017-10-15 12:18 | NUR ---
PT IS IN ROOM #2B, WAITING FOR DR DENISE EVALUATION.
--- NOTE | 2017-10-15 12:47 | NUR ---
PT ASKED PERMITION TO GO OUTSIDE TO TKE PHONE FROM HIS CAR. PT DID NOT COME BACK. DR DENISE WAS NOTIFIED. PT ELOPED.
== END 2017-10-15 12:52 | disposition left against medical advice (07) ==
LOC: ER 11:35
DX: Z53.21 Procedure and treatment not carried out due to patient leaving prior to being seen by health care provider (principal)
CPT/HCPCS: A4663